=== PATIENT | female | born 1960 | race Two or more races ===

== ENCOUNTER 2025-06-12 13:43 | Outpatient (AMB) | payer MEDICARE, MEDICAID, SELFPAY ==
--- NOTE | 2025-06-12 13:46 | A.PHYSOV ---
Vital Signs 06/12/25 13:49 Height 5 ft 4 in Weight 145 lb BMI 24.9 Intake Visit Reasons: MRI followup Intake Note: Patient is a 64 year old female in office today for a follow up visit of MRI results. 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 The pain has been progressively worsening, with stiffness and cramping in the legs. The MRI indicates worsening arthritis and disc issues, with severe narrowing at the nerve exit points causing radicular pain. The patient has previously undergone several epidural injections with limited relief. Physical therapy has been attempted without significant improvement. The patient is considering surgical intervention and has been referred to Dr. Ayala at [facility] for further evaluation. The patient reports a history of trying various pain medications, including Percocet, Vicodin, and tramadol, which have provided some relief in the past. I ordered MRI of the lumbar spine and we are reviewing it in person today. Pain Description - Onset: Progressive worsening of back pain - Quality: Stiffness and cramping in the legs - Location: Radiating from the back to both legs - Exacerbating factors: Severe narrowing at nerve exit points PFSH Surgical History History of neck surgery (Unknown) H/O: hysterectomy (Unknown) Social History Household Members: Spouse Alcohol intake: current Alcohol intake frequency: does not drink Use of substances other than those prescribed or required for medical reasons: No Current occupational status: unemployed Review of Systems Narrative Review of Systems - Musculoskeletal: Reports severe back pain radiating to both legs, stiffness, and cramping. Physical Exam Exam Exam: Physical Exam Lumbar Spine: Examination of the lumbar spine, there is no visible swelling or deformity. She is tender to lower lumbar facets. She is otherwise nontender. Full range of motion of the lumbar spine. She does have an increase in pain with facet loading. Special Tests: Lhermittes sign was negative Heel Toe walk is normal Left straight leg raise: Negative Right straight leg raise: Negative Special tests Ezra test is negative Ganslen's test is negative SI Joint compression test negative Manuel test negative Piriformis stretch is negative Lower Extremities: Full range of motion bilateral lower extremities. No calf pain or edema. Neuro: Sensation: Intact to lower extremities bilaterally Strength L2 (Psoas): 5/5 on the left and 5/5 on the right. L3 (Quads): 5/5 on the left and 5/5 on the right. L4 (Ant tibialis): 5/5 on the left and 5/5 on the right. L5 (EHL) 5/5 on the left and 5/5 on the right. S1 (Gastroc): 5/5 on the left and 5/5 on the right. DTR L4: (Patellar) Left 2 Right 2 S1: (Achilles) Left 2 Right 2 Babinski Downgoing No pathologic clonus. No involuntary movement. Vital Signs: BMI result Body Mass Index 24.9 Assessment & Plan Assessment & Plan (1) Lumbar radiculopathy: Code(s): M54.16 - Radiculopathy, lumbar region Category: Medical (2) Lumbar spondylosis: Code(s): M47.816 - Spondylosis without myelopathy or radiculopathy, lumbar region Category: Medical Plan Pain Management - Affect: Pain impacts the patient's ability to walk and perform daily activities. - Analgesia: Currently prescribed 28 pills of pain medication to be used as needed. - Activities of Daily Living: Pain interferes with the patient's ability to work and care for the spouse. Plan Patient was informed and verbally consented to the use of an ambient scribe for clinic note documentation during this visit. 1. Lumbar Spinal Stenosis With Radiculopathy The patient is experiencing lumbar spinal stenosis with radiculopathy, characterized by severe back pain radiating to both legs due to severe narrowing at the nerve exit points. The patient has been referred to Dr. Ayala at [facility] for surgical evaluation per her request. Epidural injections have been attempted previously with limited relief, and the patient is considering surgical intervention. If she opts not for surgery recommend she return. 2. Osteoarthritis Of The Spine The patient has osteoarthritis of the spine, contributing to the severe narrowing and radicular pain. Pain management includes the use of prescribed pain medication as needed. Physical therapy has been attempted without significant improvement. I will prescribe Percocet for the severity of her pain. She will only take it for breakthrough pain. She will not operate any heavy machinery while taking Percocet. I reviewed her mass pat and there are no red flags. Orders: Referrals Neuro Spine Referral M47.816 - Spondylosis without myelopathy or radiculopathy, lumbar region, M54.16 - Radiculopathy, lumbar region Medications: New oxycodone-acetaminophen 5-325 mg (Percocet) Partial Fill upon patient request. 1 tab PO Q6H PRN 28 tabs 0RF pain 7 days Coding Level of Care Code Tele Est Pt Level 4 (48133) Diagnoses Lumbar radiculopathy M54.16 Lumbar spondylosis M47.816
[2025-06-12 13:49] VITALS: BMI 24.9
--- OUTSIDE RECORDS SUMMARY | 2025-06-12 18:33 | XMS_ITS | Clinical Summary ---
Author Organization [place] [address] [facility] Address [address] [place] [address] Phone Care Team Providers Care Cook Italian Style Food Name Role Phone Emre Molina MD Primary Care Provider [phone] Allergies Active Allergy Reactions Criticality Noted Date Comments Food Allergy Formula 04/09/2022 [place] Penicillins 06/17/2016 Other Reaction(s): Rash/Dermatitis Shellfish Containing Products 04/09/2022 seafood Medications calcium carbonate-cholec alciferol 500 mg-10 mcg (400 unit) per tablet Take 1 tablet by mouth 2 times daily. 1 Active prazosin (MINIPRESS) 2 mg capsule Take 2 mg by mouth at bedtime. Active topiramate (TOPAMAX) 100 mg tablet Take 100 mg by mouth daily. Active traZODone (DESYREL) 150 mg tablet Take 150 mg by mouth at bedtime. Active ipratropium-albu teroL (DUONEB) 0.5-2.5 mg/3 mL nebulizer solutionIndicati ons:Essential (primary) hypertension Take 3 mL by nebulization 4 (four) times a day. 90 mL 1 5 Active losartan (COZAAR) 50 mg tablet Take 1 tablet (50 mg total) by mouth 1 (one) time each day. 90 each 1 5 025 Active omeprazole (PriLOSEC) [address] capsule Take 1 capsule (40 mg total) by mouth 1 (one) time each day. Do not crush or chew. 90 each 1 5 025 Active montelukast (SINGULAIR) 10 mg tablet Take 1 tablet (10 mg total) by mouth at bedtime. 90 each 1 5 025 Active albuterol HFA (Ventolin HFA) 90 mcg/actuation inhaler Inhale 2 puffs by mouth every 4 (four) hours if needed for wheezing. 18 each 1 5 Active cetirizine (ZyrTEC) 10 mg tablet Take 1 tablet (10 mg total) by mouth 1 (one) time each day. 90 each 1 5 025 Active fluticasone propionate (FLONASE) 50 mcg/actuation nasal spray Administer 2 sprays into each nostril 1 (one) time each day. Shake gently. Before first use, prime pump. After use, clean tip and replace cap. 16 g 2 5 Active lidocaine (Salonpas, lidocaine,) 4 % patch Apply 1 Each topically daily as needed (pain). 30 each 2 5 Active budesonide-formo teroL (SYMBICORT) 80-4.5 mcg/actuation inhaler INHALE 1 PUFF BY MOUTH 2 TIMES A DAY. RINSE MOUTH WITH WATER AFTER USE. DO NOT SWALLOW. 30.6 each 5 Active methocarbamoL (ROBAXIN) 500 mg tablet Take 1 tablet (500 mg total) by mouth every 6 (six) hours if needed for muscle spasms for up to 10 days. Caution: Sedating. Do not drive or operate machinery on this medication. 40 tablet 5 Active Active Problems Problem Noted Date Diagnosed Date Asthma 06/28/2024 Bipolar affect, depressed ([facility] V24, [facility] V28) 06/28/2024 HTN (hypertension) 06/28/2024 Major depression 06/28/2024 Overview (06/28/2024): clinical support options Nephrolithiasis 03/29/2024 COVID-19 virus infection 09/11/2020 Overview (06/28/2024): 09/10/2020 CKD (chronic kidney disease) stage 3, GFR 30-59 ml/min ([facility] V24, [facility] V28) 04/25/2020 Allergic rhinitis due to animal hair and dander 05/31/2019 Polyarthralgia 02/23/2019 Overview (06/28/2024): Follows with rheumatology; unclear etiology Leukopenia 02/15/2018 Gastroesophageal reflux disease 09/09/2017 Microcalcification of right breast on mammogram 08/24/2017 Overview (06/28/2024): Annual mammogram. Most recent benign in appearance 08/2017 Suicidal ideation 03/25/2017 Overview (06/28/2024): Section 12 at [facility] 03/2017 Cervical radicular pain 02/25/2017 Overview (06/28/2024): MRI with decompressed C5-C6, referred to neurosurgery and physiatry. Normal nerve conduction studies 07/29/2017 Prolapse of female genital organs 09/24/2016 Overview (06/28/2024): S/p repair, midurethral sling, cystourethroscpy Osteopenia 07/23/2016 Encounters Date Type Department Care Team Description 05/24/2025 4:38 PM EST - 05/24/2025 11:59 PM EST Hospital Encounter Radiology Department - [address] [address] Radiculopathy, lumbar region; Spondylosis, unspecified Discharge Disposition: Home or Self Care 05/17/2025 Telephone Internal Medicine - [facility] [address] [place] [address] Emre Molina MD 05/02/2025 5:18 PM EDT - 05/02/2025 11:59 PM EDT Hospital Encounter Xray - [facility] [address] [place] [address] Acute bilateral low back pain without sciatica Discharge Disposition: Home or Self Care 05/02/2025 4:45 PM EDT [facility] [address] [facility] [address] [place] [phone] Willis Webb PA Acute bilateral low back pain without sciatica (Primary Dx) 05/02/2025 [address] [place] [phone] Emre Molina MD from Last 3 Months Immunizations Immunization Administration Dates Next Due Influenza Quadravalent, MDCK , 0.5ml, preservative free (Flucelvax) 6mo and older 04/09/2022,04/09/2021,05/03/2020,08/02,07/15/2018 Influenza trivalent, 0.5mL, preservative free (Fluarix; FluLaval; Fluzone) ages 6mo and older (Afluria) 3 years and older 03/27/2023,07/23/2016 Influenza, Unspecified 03/27/2023 Moderna SARS-CoV-2 COVID-19, mRNA, LNP-S, preservative free 06/23/2021 Pfizer (ages 12 & older) Biv alent, COVID-19 08/13/2022 Pneumococcal polysaccharide 23 valent (Pneumovax 23) 2yo and older 08/12/2015 Zoster recombinant (Shingrix ) 19yo and older 11/08/2021,08/28/2021 Surgical History Surgery Date Site/Laterality Comments OTHER SURGICAL HISTORY PROCEDURE: NV TOTAL ABDOMINAL HYSTERECT W/WO RMVL TUBE OVARY BLADDER SUSPENSION PROCEDURE: HISTORICAL BLADDER SUSPENSION NECK SURGERY PROCEDURE: HISTORICAL NECK SURGERY FOOT SURGERY PROCEDURE: HISTORICAL FOOT SURGERY BREAST BIOPSY & 2021 benign Bilateral PROCEDURE: BX BREAST; PERC NEEDLE CORE W/IMAG GUID; COMMENT: b9 BREAST LUMPECTOMY Left PROCEDURE: HISTORICAL BREAST LUMPECTOMY; COMMENT: benign Medical History Medical History Date Comments Asthma DX:Asthma HTN (hypertension) DX:HTN (hyper tension) Major depression DX:Major depres tai; COMMENT: dr golden; clinical support options Bipolar affect, depressed ([facility] V24, CMS/HCC V28) DX:Bipolar affect, depressed (HCC) FHx: BRCA gene positive DX:FHx: BRCA gene positive; COMMENT: daughter Suicidal ideation 03/25/2017 DX:Suicidal id eation; COMMENT: Section 12 at [facility] 03/2017 Family history of colon cancer 06/17/2016 D X:Family history of colon cancer Family history of uterine cancer 06/17/2016 DX:Family history of uterine cancer; COMMENT: Referred to genetics Osteopenia 07/23/2016 DX:Osteopenia Prolapse of female genital organs 09/24/2016 DX:Prolapse of female genital organs; COMMENT: S/p repair, midurethral sling, cystourethroscpy Cervical radicular pain 02/25/2017 DX:Cervi marisol radicular pain; COMMENT: MRI with decompressed C5-C6, referred to neurosurgery and physiatry. Normal nerve conduction studies 07/29/2017 Microcalcification of right breast on mammogram 08/24/2017 DX:Microcalcification of rig ht breast on mammogram; COMMENT: Annual mammogram. Most recent benign in appearance 08/2017 Leukopenia 02/15/2018 DX:Leukopenia Polyarthralgia 02/23/2019 DX:Polyarthralgi a; COMMENT: Follows with rheumatology; unclear etiology COVID-19 virus infection 09/11/2020 DX:COVI D-19 virus infection; COMMENT: 09/10/2020 Family History Medical History Relation Name Comments Breast cancer Aunt p aunt Lung cancer Brother Coronary artery disease Father cabg Breast cancer Maternal Grandmother age 45 Coronary artery disease Mother Uterine cancer Mother Breast cancer Mother's side 1 aunt Breast cancer Mother's side 2 m aunt Uterine cancer Mother's side 2 m aunt aunt Uterine cancer Mother's side 3 aunt Uterine cancer Mother's side 4 aunt Uterine cancer Mother's side 5 aunt Relation Name Status Comments Aunt p aunt Alive Brother Father Maternal Grandmother age 45 Mother Mother's side 1 aunt Alive Mother's side 2 m aunt Alive Mother's side 3 Mother's side 4 Mother's side 5 Social History Tobacco Use Types Packs/Day Years Used Date Smoking Tobacco: Never Smokeless Tobacco: Never Tobacco Cessation:Counseling Given: Not Answered Alcohol Use Standard Drinks/Week Comments Not Asked 0 (1 standard drink = 0.6 oz pur e alcohol) Comments No Sex and Gender Information Value Date Recorded Sex Assigned at Not on file Legal Sex Female 10:05 PM EST Gender Identity Not on file Sexual Orientation Not on file Obstetrics History Para Term AB IAB SAB Ectopic Multiple Livin g Live Births 4 4 4 4 Date Outcome GA Total Labor Labor/2nd/3rd Weight Sex Type Anes PTL Tara A1 A5 Name Clin Term Term Term Term Last Filed Vital Signs Vital Sign Reading Time Taken Comments Blood Pressure 136/88 05/02/2025 4:39 PM EDT Pulse 75 05/02/2025 4:39 PM EDT Temperature 36.5 C (97.7 F) 05/02/2025 4:39 PM EDT Respiratory Rate 16 01/10/2025 3:56 PM EDT Oxygen Saturation 97% 05/02/2025 4:39 PM EDT Inhaled Oxygen Concentration - - Weight 66 kg (145 lb 9.6 oz) 01/10/2025 3:56 PM EDT Height 162.6 cm (5' 4 ) 07/04/2024 2:48 PM EST Body Mass Index 24.99 07/04/2024 2:48 PM EST Plan of Treatment Upcoming Encounters Date Type Department Care Team (Late st Contact Info) Description 06/23/2025 2:15 PM EST Office Visit Internal Medicine - [address] [phone] Rajesh Whitney PA [address] [place] [id number] 07/18/2025 3:00 PM EST Office Visit Internal Medicine - [address] [phone] Emre Molina MD [address] [place] [address] Health Maintenance Due Date Last Done Comments RSV Immunization Adult Patients (1 - Risk 50-74 years 1-dose series) 12/26/2011 Pneumococcal Vaccine: 50+ Years (2 of 2 - PCV) 08/12/2016 08/12/2015 HIV Screening 06/28/2022 Medicare Annual Wellness Visit 06/28/2022 Social Influencers of Health Screening 06/28/2022 Cervical Cancer Screening: Pap Smear 08/02/2022 08/02/2019 Depression Screening 07/20/2024 02/10/2024 COVID-19 Vaccine ( season) 2025 08/13/2022, 11/14/2021, 06/23/2021, Additional history exists Influenza Vaccine (#1) 2025 , 03/27/2023, 04/09/2022, Additional history exists Colorectal Cancer Screening: Colonoscopy 08/20/2025 08/20/2015 Hypertension/CHF/CAD Annual BMP Blood Test 09/16/2025 09/16/2024, 07/04/2024, 03/29/2024, Additional history exists DTaP,Tdap,and Td Vaccines (2 - Td or Tdap) 01/02/2026 01/03/2016 Breast Cancer Screening 08/15/2026 08/15/19, 08/11/2023, 08/07/2022, Additional history exists Cholesterol Screening (Lipid Panel) 10/23/2027 10/22/2022 Hepatitis C Screening Completed 07/23/2016 Zoster Vaccines Completed 01/30/2022, 10/19, 10/21/2021, Additional history exists HIB Vaccines Aged Out No longer eligi ble based on patient's age to complete this topic HPV Vaccines Aged Out No longer eligi ble based on patient's age to complete this topic Hepatitis A Vaccines Aged Out No long er eligible based on patient's age to complete this topic Hepatitis B Vaccines Aged Out No long er eligible based on patient's age to complete this topic IPV Vaccines Aged Out No longer eligi ble based on patient's age to complete this topic MMR Vaccines Aged Out No longer eligi ble based on patient's age to complete this topic Meningococcal ACWY Vaccine Aged Out N o longer eligible based on patient's age to complete this topic Meningococcal B Vaccine Aged Out No l onger eligible based on patient's age to complete this topic RSV Immunization Patients Under 20 months Aged Out No longer eligible based on patient's age to complete this topic Varicella Vaccines Aged Out No longer eligible based on patient's age to complete this topic Procedures Procedure Name Priority Date/Time Associated Diagnosis Comments MR LUMBAR SPINE WO CONTRAST Routine 05/24/2025 5:12 PM EST Radiculopathy, lumbar region Spondylosis, unspecified XR LUMBAR SPINE 4+ VIEWS STAT 05/02/2025 5:25 PM EDT Acute bilateral low back pain without sciatica BASIC METABOLIC PANEL Routine 09/16/2024 3:01 PM EST Essential (primary) hypertension MG MAMMO DIGITAL SCREENING W JACK BILAT Routine 08/15/2024 1:20 PM EST Encounter for screening mammogram for breast cancer HM DEPRESSION SCREENING Routine 02/10/2024 LIPID PANEL Routine 10/22/2022 HM PAP SMEAR Routine 08/02/2019 HEPATITIS C SCREENING Routine 07/23/2016 HM COLONOSCOPY Routine 08/20/2015 from Last 3 Months or Most Recently Relevant to Health Maintenance Results * MR Lumbar Spine wo Contrast (05/24/2025 5:12 PM EST) Anatomical Region Laterality Modality L-spine, Spine Magnetic Resonan ce 05/24/2025 5:22 PM EST Impressions 05/25/2025 10:36 AM EST Impression: Multilevel degenerative changes as above worse at L3-L4 and L4-L5 with moderate spinal canal stenosis. -------- FINAL REPORT -------- Dictated By: Godfrey Burch Dictated Date: 05/24/2025 17:22 ET Assigned Physician: Godfrey Burch Reviewed and Electronically Signed By: Godfrey Burch Signed Date: 05/25/2025 10:36 ET Workstation ID: [id number] Transcribed By: Self Edit Transcribed Date: 05/24/2025 17:23 ET Narrative 05/25/2025 10:36 AM EST MRI LUMBAR SPINE Clinical Statement: low back pain Comparison: MRI lumbar spine from 05/16/2018 Technique: Multiplanar, multisequence MRI images of the lumbar spine were obtained without intravenous contrast. Findings: There is normal lumbar lordosis. There is preservation of vertebral body height. Vertebral body marrow is within normal limits. Disc desiccation at multiple levels. Cord signal is normal. The conus medullaris is normal in signal characteristics and morphology and terminates at the L1-2 level. T12-L1: No neuroforaminal stenosis or spinal canal stenosis L1-L2: Mild broad-based disc bulge without neuroforaminal or spinal canal stenosis L2-L3: Broad-based disc bulge, facet hypertrophy with mild bilateral neuroforaminal stenosis, no spinal canal stenosis L3-L4: Broad-based disc bulge, facet arthropathy and hypertrophy, ligamentum flavum hypertrophy with moderate right and severe left neuroforaminal stenosis and moderate spinal canal stenosis L4-L5: Broad-based disc bulge, facet arthropathy and hypertrophy, ligamentum flavum hypertrophy with severe right and moderate left neuroforaminal stenosis and moderate spinal canal stenosis L5-S1: Broad-based disc bulge and central disc protrusion with small posterior annular tear with disc extrusion superiorly measuring 0.4 cm. With mild right and moderate left neuroforaminal stenosis and mild spinal canal stenosis Procedure Note Godfrey Burch MD - 05/25/2025 MRI LUMBAR SPINE Clinical Statement: low back pain Comparison: MRI lumbar spine from 05/16/2018 Technique: Multiplanar, multisequence MRI images of the lumbar spine wereobtained without intravenous contrast. Findings: There is normal lumbar lordosis. There is preservation ofvertebral body height. Vertebral body marrow is within normal limits.Disc desiccation at multiple levels. Cord signal is normal. The conusmedullaris is normal in signal characteristics and morphology andterminates at the L1-2 level. T12-L1: No neuroforaminal stenosis or spinal canal stenosis L1-L2: Mild broad-based disc bulge without neuroforaminal or spinal canalstenosis L2-L3: Broad-based disc bulge, facet hypertrophy with mild bilateralneuroforaminal stenosis, no spinal canal stenosis L3-L4: Broad-based disc bulge, facet arthropathy and hypertrophy,ligamentum flavum hypertrophy with moderate right and severe leftneuroforaminal stenosis and moderate spinal canal stenosis L4-L5: Broad-based disc bulge, facet arthropathy and hypertrophy,ligamentum flavum hypertrophy with severe right and moderate leftneuroforaminal stenosis and moderate spinal canal stenosis L5-S1: Broad-based disc bulge and central disc protrusion with smallposterior annular tear with disc extrusion superiorly measuring 0.4 cm.With mild right and moderate left neuroforaminal stenosis and mild spinalcanal stenosis IMPRESSION: Impression: Multilevel degenerative changes as above worse at L3-L4 and L4-L5 withmoderate spinal canal stenosis. -------- FINAL REPORT -------- Dictated By: Godfrey Burch Dictated Date: 05/24/2025 17:22 ET Assigned Physician: Godfrey Burch Reviewed and Electronically Signed By: Godfrey Burch Signed Date: 05/25/2025 10:36 ET Workstation ID: [id number] Transcribed By: Self Edit Transcribed Date: 05/24/2025 17:23 ET us Robbi HALL IMG MRI PROCEDURES Final Resul t * XR Lumbar Spine 4+ Views (05/02/2025 5:25 PM EDT) Anatomical Region Laterality Modality Spine, L-spine Radiographic Caitlyn ging 05/03/2025 9:04 AM EDT Impressions 05/03/2025 9:08 AM EDT No acute fracture or dislocation. -------- FINAL REPORT -------- Dictated By: Godfrey Burch Dictated Date: 05/03/2025 09:04 ET Assigned Physician: Godfrey Burch Reviewed and Electronically Signed By: Godfrey Burch Signed Date: 05/03/2025 09:08 ET Workstation ID: [id number] Transcribed By: Self Edit Transcribed Date: 05/03/2025 09:04 ET Narrative 05/03/2025 9:08 AM EDT HISTORY: Back pain x 3 weeks, no injury TECHNIQUE: 4 views of the lumbar spine COMPARISON: Lumbar spine radiograph from 11/05/2016 FINDINGS: Vertebral body height is maintained. Decreased vertebral body height at the superior endplate of T12 and L1 suggesting chronic compression deformities, less than 25% vertebral body height loss is present. No evidence of spondylolisthesis. Decreased disc height at L3-L4 with endplate sclerosis. There is moderate neuroforaminal stenosis at multiple levels. Large amount stool throughout the colon. The sacroiliac joints are patent. Procedure Note Godfrey Burch MD - 05/03/2025 HISTORY: Back pain x 3 weeks, no injury TECHNIQUE: 4 views of the lumbar spine COMPARISON: Lumbar spine radiograph from 11/05/2016 FINDINGS: Vertebral body height is maintained. Decreased vertebral body height atthe superior endplate of T12 and L1 suggesting chronic compressiondeformities, less than 25% vertebral body height loss is present. Noevidence of spondylolisthesis. Decreased disc height at L3-L4 withendplate sclerosis. There is moderate neuroforaminal stenosis at multiplelevels. Large amount stool throughout the colon. The sacroiliac joints arepatent. IMPRESSION: No acute fracture or dislocation. -------- FINAL REPORT -------- Dictated By: Godfrey Burch Dictated Date: 05/03/2025 09:04 ET Assigned Physician: Godfrey Burch Reviewed and Electronically Signed By: Godfrey Burch Signed Date: 05/03/2025 09:08 ET Workstation ID: [id number] Transcribed By: Self Edit Transcribed Date: 05/03/2025 09:04 ET us Willis HALL IMG XR PROCEDURES Final Re sult * Basic metabolic panel (09/16/2024 3:01 PM EST) Sodium 142 133 - 145 mmol/L LAB CHEMISTRY METHOD 09/16/2024 9:05 PM [facility] Potassium 3.6 3.5 - 5.5 mmol/L LAB CHEMISTRY METHOD 09/16/2024 9:05 PM [facility] Chloride 110 96 - 110 mmol/L LAB CHEMISTRY METHOD 09/16/2024 9:05 PM [facility] CO2 28 21 - 32 mmol/L LAB CHEMISTRY METHOD 09/16/2024 9:05 PM [facility] Anion Gap 4 3 - 11 LAB CHEMISTRY METHOD 09/16/2024 9:05 PM [facility] Glucose 94 70 - 100 mg/dL LAB CHEMISTRY METHOD 09/16/2024 9:05 PM [facility] BUN 15 5 - 25 mg/dL LAB CHEMISTRY METHOD 09/16/2024 9:05 PM [facility] Creatinine 0.83 0.50 - 1.10 mg/dL LAB CHEMISTRY METHOD 09/16/2024 9:05 PM [facility] eGFR 80 >=60 mL/min/1. 73m2 LAB CHEMISTRY METHOD 09/16/2024 9:05 PM [facility] Comment:Calculation based on the Chronic Kidney Disease Epidemiology Collaboration (CKD-EPI) equation refit without adjustment for race. BUN/Creatinine Ratio 18.1 LAB CHEMISTRY METHOD 09/16/2024 9:05 PM [facility] Calcium 9.8 8.5 - 10.5 mg/dL LAB CHEMISTRY METHOD 09/16/2024 9:05 PM [facility] Blood Venous blood specimen / Unknown Venipuncture / Unknown 09/16/2024 3:01 PM EST 09/16/2024 3:01 PM EST us Rajesh HALL LAB BLOOD ORDERABLES Fi nal Result [facility] [address] [place] [address], [place] [phone] * MG Mammo Digital Screening w Jack bilat (08/15/2024 1:20 PM EST) Anatomical Region Laterality Modality Breast Bilateral Mammography 08/16/2024 10:1 1 AM EST Impressions 08/16/2024 10:13 AM EST No mammographic evidence of malignancy. BREAST DENSITY: B - There are scattered areas of fibroglandular density. BI-RADS CATEGORY: 2 - BENIGN RECOMMENDATION: Screening bilateral mammogram is recommended in 1 year. MAMMO LOCATION: [facility], [address] [place] [address], [id number], . -------- FINAL REPORT -------- Dictated By: Nya Contreras Dictated Date: 08/16/2024 10:11 ET Assigned Physician: Nya Contreras Reviewed and Electronically Signed By: Nya Contreras Signed Date: 08/16/2024 10:13 ET Workstation ID: [id number] Transcribed By: Self Edit Transcribed Date: 08/16/2024 10:11 ET Narrative 08/16/2024 10:13 AM EST EXAM: Screening Mammogram CLINICAL: 63 years old, Female, routine annual exam. History of a benign right stereotactic core biopsy 08/27/2021. Remote history of a benign left excisional biopsy. COMPARISON: 08/11/2023 and as far back as 07/26/2020 TECHNIQUE: Bilateral MLO and CC views were obtained digitally with 3-D mammogram (digital breast tomosynthesis). Computer-aided detection was utilized in evaluation of this exam (CAD). FINDINGS: Biopsy clip again noted in the upper outer right breast with stable adjacent residual calcifications. No new suspicious mass, architectural distortion, or suspicious calcifications. Procedure Note Nya Contreras MD - 08/16/2024 EXAM: Screening Mammogram CLINICAL: 63 years old, Female, routine annual exam. History of a benignright stereotactic core biopsy 08/27/2021. Remote history of a benignleft excisional biopsy. COMPARISON: 08/11/2023 and as far back as 07/26/2020 TECHNIQUE: Bilateral MLO and CC views were obtained digitally with 3-Dmammogram (digital breast tomosynthesis). Computer-aided detection wasutilized in evaluation of this exam (CAD). FINDINGS: Biopsy clip again noted in the upper outer right breast with stableadjacent residual calcifications. No new suspicious mass, architecturaldistortion, or suspicious calcifications. IMPRESSION: No mammographic evidence of malignancy. BREAST DENSITY: B - There are scattered areas of fibroglandular density. BI-RADS CATEGORY: 2 - BENIGN RECOMMENDATION: Screening bilateral mammogram is recommended in 1 year. MAMMO LOCATION: [facility], [address] [place] [address], [id number], . -------- FINAL REPORT -------- Dictated By: Nya Contreras Dictated Date: 08/16/2024 10:11 ET Assigned Physician: Nya Contreras Reviewed and Electronically Signed By: Nya Contreras Signed Date: 08/16/2024 10:13 ET Workstation ID: [id number] Transcribed By: Self Edit Transcribed Date: 08/16/2024 10:11 ET Emre Molina MD IMG BI PROCEDURES Final Result * Depression Screening (02/10/2024) [facility] Depression Screening abstracted Result [facility] Historical Provider HEALTH MAINTENANCE Final Result * Lipid panel (10/22/2022) [facility] LDL/HDL Ratio 3 0 - 4 Triglycerides 148 0 - 150 mg/dL Cholesterol 193 0 - 200 mg/dL HDL 67 >=40 mg/dL LDL Cholesterol 97 0 - 100 mg/dL Blood Venous blood specimen / Unknown Historical Provider LAB BLOOD ORDERABLES Charmaine l Result * Pap Smear (08/02/2019) [facility] Pap smear no interpretation , abstracted [facility] Provider HEALTH MAINTENANCE Final Result * Hepatitis C Screening (07/23/2016) [facility] Hepatitis C Screening abstracted Historical Provider HEALTH MAINTENANCE Final Result * Colonoscopy (08/20/2015) [facility] Colonoscopy no interpretation , abstracted Anatomical Region Laterality Modality Other Historical Provider HEALTH MAINTENANCE Final Result from Last 3 Months or Most Recently Relevant to Health Maintenance Insurance [place]ICA[place] [employer] MEDICARE Care Teams Cook Italian Style Food Relationship Specialty Start Date End Date Emre Molina MD [address] [place] [address] PCP - General Internal Medicine 06/30/24
--- OUTSIDE RECORDS SUMMARY | 2025-06-12 18:33 | XMS_ITS ---
Author Name [facility] Organization Unknown Care Team Organization Name Specialty Phone Email Start Date End [facility] 12/01/2022 12/01/2022
== END 2025-06-12 14:14 | disposition home or self-care (01) ==
LOC: HO.HPHYS 13:44
PROVIDERS: PCP Internal Medicine; Visit Provider Physician Assistant
DX: M54.16 Radiculopathy, lumbar region (principal); M47.816 Spondylosis without myelopathy or radiculopathy, lumbar region
CPT/HCPCS: 99214

== ENCOUNTER → 2025-06-12 13:43 | Outpatient (BNVA) | payer MEDICARE, MEDICAID, SELFPAY | PROVIDERS: PCP Internal Medicine; Visit Provider Physician Assistant | DX: M54.16 Radiculopathy, lumbar region (principal); M47.816 Spondylosis without myelopathy or radiculopathy, lumbar region | CPT/HCPCS: 99212 ==

== ENCOUNTER 2025-06-26 08:43 | Outpatient (AMB) | payer OTHER, SELFPAY ==
[2025-06-26 08:45] VITALS: BMI 24.9
--- NOTE | 2025-06-26 08:45 | A.SPINEOV_ITS ---
Vital Signs 06/26/25 08:45 Height 5 ft 4 in Weight 145 lb BMI 24.9 Intake Visit Reasons: LBP Intake Note: Ms. Conrad is here today c/o Low back pain. MRI done at [facility]. 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 She is a very nice 64-year-old bipolar female presents for evaluation of acute on chronic low back pain as well as bilateral lower extremity pain. The patient reports that her pain is more less intolerable throughout the whole day. It is even unbearable at night. She has limited ability to walk as well as the pain will make her legs feel like they are going to give out from underneath her. She also reports pain with sitting and lying down that is also 10/10. Her legs feel numb. She has been taking some Percocet that you gave her and that gives her a little bit of relief. She has done physical therapy and injections in the past, and while they helped temporarily for a brief period of time, it generally does not last very long. She had an MRI done at [facility] showing some moderate stenosis at L3- 4 and L4-5 and was sent for evaluation. PMH: Anterior cervical fusion, bladder sling, left hand surgery, hypertension, asthma, bipolar disorder. Denies any history of cardiovascular disease, strokes, major pulmonary problems, liver disease. Her [facility] records suggest she has chronic kidney disease stage 3 but the patient does not report this. No history of bleeding disorders, blood clots, cancers or unusual infections. Social hx: She has not smoke, drink use any recreational drugs Medications: Omeprazole, zolpidem, Singulair, losartan, potassium, cetirizine, aripiprazole Allergies: Penicillin Physical exam: Awake alert oriented no acute distress, any attempts to examine her result in pain in her back and her effort is very poor with resistance so a true motor exam could not be obtained. Reflexes are 3+ and symmetric at the patella, absent at the Achilles. Negative Walls's sign. She has a scar in her left anterior neck. Imaging review: Lumbar MRI done at [facility] shows overall good alignment, her disc quality is excellent given her age, no Modic endplate changes, fractures or herniated discs seen. She has some subtle narrowing of the lateral recess at L4-5 which the radiologist is describing as moderate stenosis. The radiologist is also reporting severe foraminal stenosis at L3-4 and L4-5 but I disagree with this assessment. Impression: 64-year-old female history of bipolar disorder presents for evaluation of severe 10/10 back pain as well as bilateral lower extremity pain over the last 2-3 months which is present with standing and walking but also while sitting and lying down. Generally the pain is there at all times. She uses a cane to get around. She also reports multiple diffuse body aches and pains throughout her whole-body what she describes as 10/10. As above, her lumbar MRI does show some modest degree of degeneration and some subtle lateral recess stenosis at L4-5 but nothing that would explain 10/10 pain in her back or down her legs. Generally stenosis pain will go away with sitting or lying down but this patient reports that it can be just as bad when she is sitting or lying down as when she is walking. She has no evidence of a fracture or an acute herniated disc that would explain 10/10 acute back pain. Right now I am not exactly sure what is causing all of her symptoms. I will review with Dr. Ayala to see if he has any other thoughts. Thank you for allowing us to care for your patient. The total time spent with this visit with this patient was 45 minutes reviewing history, physical exam, lumbar imaging review, and implementation of treatment plan or further diagnostic testing Rodrick Ayala MD,PhD [facility] Coding Level of Care Code New Pt Level 4 (50166) Diagnoses Lumbar radiculopathy M54.16
== END 2025-06-26 09:29 | disposition home or self-care (01) ==
LOC: HO.HNS 08:43
PROVIDERS: PCP Internal Medicine; Referring Provider Physician Assistant; Visit Provider Physician Assistant
DX: M54.16 Radiculopathy, lumbar region (principal)
CPT/HCPCS: 99204

== ENCOUNTER → 2025-06-26 08:43 | Outpatient (BNVA) | payer OTHER, SELFPAY | PROVIDERS: PCP Internal Medicine; Referring Provider Physician Assistant; Visit Provider Physician Assistant | DX: M54.16 Radiculopathy, lumbar region (principal) | CPT/HCPCS: 99202 ==